=== PATIENT | female | born 1950 | race Caucasian/White ===

== ENCOUNTER 2017-03-16 19:57 | Emergency (ER) | payer BC ==
[2017-03-16] MEDS ORDERED: GI COCKTAIL 60ML (Belladonn/Phenobarb/Lidoc PO ONE (20:42)
[2017-03-16] MEDS ORDERED: MAALOX ES 30 ML UNIT DOSE ONE (20:50)
[2017-03-16] MEDS ORDERED: XYLOCAINE HCl Viscous ONE (20:50)
[2017-03-16] MEDS ORDERED: Donnatol Liquid ONE (20:51)
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
[2017-03-16 21:05] LABS: BASOPHIL % 0.5 % (0.0-0.4); Eosinophil % 2.9 % (0.00-5.0); Granulocytes % 56.5 % (36.0-66.0); Lymphocytes % 32.7 % (24.0-44.0); Mean Cell Volume 92.6 fl (78-100); Mean Corpuscular Hemoglobin 29.5 pg (26-32); Mean Platelet Volume 10.6 fl (6-9.5); Monocytes % 7.4 % (0.0-12.0); Platelet Count 399 K/mm3 (150-450)
[2017-03-16 21:18] LABS: ALBUMIN 3.3 g/dL (3.4-5.0); ALKALINE PHOSPHATASE 83 U/L (46-116); ANION GAP 10.1 MEQ/L (5-15); BLOOD UREA NITROGEN 10 mg/dL (9-20); CHLORIDE 108 mEq/L (98-107); Carbon Dioxide 29.1 mEq/L (21-32); Glucose 113 MG/DL (70-110); Potassium 3.8 mEq/L (3.5-5.1); SGOT/AST 17 U/L (15-37); SGPT/ALT 22 U/L (12-78); SODIUM 143 mEq/L (136-145); Total Protein 6.6 gm/dL (6.4-8.2)
[2017-03-16 21:20] LABS: ACETAMINOPHEN < 2.0 ug/ml (10-30)
[2017-03-16 21:41] LABS: ADD URINE CULTURE? YES (NO); Bacteria MODERATE /HPF (NEGATIVE); Bilirubin NEGATIVE (NEGATIVE); Blood NEGATIVE Ery/ul (0-5); COMPLETE URINE MICROSCOPIC? YES; Collection Type CLEAN CATCH; Epithelial Cells MODERATE /HPF (FEW); Glucose NEGATIVE (NEGATIVE); Leukocyte Esterase TRACE (NEGATIVE); Mucus MODERATE /HPF (NEGATIVE)
[2017-03-16] MEDS ORDERED: Macrobid 100MG Capsule PO ONE (21:58)
[2017-03-16] MEDS ORDERED: Macrobid 100MG Capsule ONE (22:16)
[2017-03-16 23:13] VITALS: BP 164/87; PULSE 72
[2017-03-16 23:16] VITALS: O2SAT 92
== END 2017-03-16 23:20 | disposition home or self-care (01) ==
LOC: ED 19:57
DX: F41.9 Anxiety disorder, unspecified (principal); I10 Essential (primary) hypertension; M79.7 Fibromyalgia; F32.9 Major depressive disorder, single episode, unspecified; N39.0 Urinary tract infection, site not specified
CPT/HCPCS: 36415; 80053; 80307; 80320; 81000; 83986; 85025; 87086; 90791; 93005; 99284; 99285; G0481; Q3014; A9270-GY

== ENCOUNTER 2019-03-28 19:33 | Emergency (ER) | payer BC ==
[2019-03-28] MEDS ORDERED: Sodium Chloride 0.9% 1000 ML 1,000 ML IV SCH (20:00)
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
[2019-03-28 20:15] LABS: Appearance SLIGHTLY CLOUDY (CLEAR); Bilirubin NEGATIVE (NEGATIVE); Blood NEGATIVE Ery/ul (0-5); Epithelial Cells RARE /HPF (FEW); Glucose NEGATIVE (NEGATIVE); Hyaline Casts 0-2 /LPF (0-2); Ketones TRACE (NEGATIVE); Leukocyte Esterase NEGATIVE (NEGATIVE); Mucus SLIGHT /HPF (NEGATIVE); Nitrite NEGATIVE (NEGATIVE); Protein,Urine Dip NEGATIVE (Negative); RBC 0-2 /HPF (0-2); Urobilinogen 4 mg/dL (0-1); WBC 0-2 /HPF (0-5)
[2019-03-28 20:54] LABS: BASOPHIL % 0.3 % (0.0-0.4); Basophil (Absolute #) 0.02 (0-0.4); Eosinophil % 0.7 % (0.00-5.0); Eosinophil (Absolute #) 0.05 (0-0.5); Granulocyte Absolute (ANC) 4.84 (1.4-6.9); Hematocrit 42.4 % (35-47); Hemoglobin 13.9 gm/dl (12.0-16.0); Lymphocyte (Absolute #) 1.78 (1.0-4.6); Mean Cell Volume 90.8 fl (78-100); Mean Corpuscular Hemoglobin 29.8 pg (26-32); Mean Corpuscular Hgb Concent. 32.8 g/dl (32-36); Mean Platelet Volume 11.2 fl (6-9.5); Monocyte (Absolute #) 0.74 (0.0-1.3); Platelet Count 233 K/mm3 (150-450); Red Blood Count 4.67 M/mm3 (4.1-5.4); Red Cell Distribution Width 13.6 % (11.5-14.0); White Blood Count 7.4 K/mm3 (4.0-10.5)
[2019-03-28] MEDS ORDERED: Sodium Chloride 0.9% 1000 ML 1,000 ML ONE (20:54)
[2019-03-28 21:05] LABS: ANION GAP 12.5 MEQ/L (5-15); BLOOD UREA NITROGEN 11 mg/dL (7-17); CHLORIDE 105 mmol/L (98-107); Calcium 10.6 mg/dL (8.4-10.2); Carbon Dioxide 29 mmol/L (22-30); Creatinine 1 0.76 mg/dL (0.52-1.04); Glucose 104 mg/dL (74-106); Potassium 3.5 mmol/L (3.5-5.1); SODIUM 143 mmol/L (137-145)
[2019-03-28 21:49] VITALS: BP 132/78; PULSE 79
[2019-03-28 21:51] VITALS: O2SAT 94
--- NOTE | 2019-03-29 08:50 | XRAY ---
Indication: Left head injury. Multiple contiguous axial images obtained through the head without contrast. Comparison: None Age-appropriate global atrophy and mild periventricular degenerative micro-ischemia bilaterally. No acute intracranial hemorrhage, abnormal extra-axial fluid collection, or mass effect. Fourth ventricle is midline without hydrocephalus. Bony calvarium intact. Visualized paranasal sinuses and mastoid air cells are clear. Impression: Nonacute senile brain. Comment: Preliminary interpretation was made by [facility]. No discrepancy. CT DI 51.37
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
--- NOTE | 2019-03-29 08:54 | XRAY ---
Indication: Neck pain following head injury. Multiple contiguous axial images obtained through the cervical spine. Sagittal and coronal reformatted images obtained. Comparison: None Axial images negative for acute fracture, suspicious bony lesions, or spinal canal stenosis. Mild C4-C7 degenerative endplate spurring. Also mild multilevel bilateral degenerative facet hypertrophy. Sagittal and coronal reformatted images demonstrates normal cervical alignment with C5-C7 disc space narrowing. No acute compression fracture, subluxation, or jumped facet. Normal appearing craniocervical junction. Visualized noncontrasted soft tissues demonstrates minimal left carotid calcifications. Lung apices are clear. Impression: 1. Negative for acute fracture/subluxation. 2. Multilevel degenerative changes. Comment: Preliminary interpretation was made by [facility]. No discrepancy. CT DI 55.94
== END 2019-03-28 21:56 | disposition home or self-care (01) ==
LOC: ED 19:33
DX: S00.83XA Contusion of other part of head, initial encounter (principal); S00.03XA Contusion of scalp, initial encounter; S16.1XXA Strain of muscle, fascia and tendon at neck level, initial encounter; Y04.0XXA Assault by unarmed brawl or fight, initial encounter; R55 Syncope and collapse; Z79.899 Other long term (current) drug therapy; Z79.891 Long term (current) use of opiate analgesic
CPT/HCPCS: 36415; 70450; 70486; 72125; 80048; 81001; 83735; 84484; 85025; 93005; 93041; 96360; 99284